=== PATIENT | male | born 1990 | race Caucasian/White ===

== ENCOUNTER 2019-02-14 13:49 | Emergency (ER) | payer OTHER, SELFPAY ==
[2019-02-14 13:54] VITALS: BP 120/75; PULSE 67; RESP 15; TEMP 36.8; O2SAT 100
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
[2019-02-14] MEDS: Ibuprofen 600 MG TAB PO (14:23)
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
== END 2019-02-14 15:25 | disposition home or self-care (01) ==
PROVIDERS: Emergency Provider Physician Assistant
DX: S42.022A Displaced fracture of shaft of left clavicle, initial encounter for closed fracture (principal); V17.0XXA Pedal cycle driver injured in collision with fixed or stationary object in nontraffic accident, initial encounter
CPT/HCPCS: 99283; 73000; 99282; L3650